=== PATIENT | male | born 1995 | race Caucasian/White ===

== ENCOUNTER → 2020-12-26 | Outpatient (CLI) | payer OTHER ==
--- NOTE | 2020-12-27 13:43 | REP ---
INDICATION: ELENITA HYPERTROPHIC BREAST TISSUE x YEARS. COMPARISON: None. TECHNIQUE: Bilateral breast sonography is performed. Mildly heterogeneous fibroglandular tissue is seen in the retroareolar region bilaterally consistent with bilateral and symmetric gynecomastia. No mass lesion is seen on either side. No suspicious acoustic shadowing or architectural distortion is observed. There are benign appearing bilateral axillary lymph nodes with fatty hilar architecture. No suspicious finding in either axilla. FINDINGS: BI-RADS category 2 benign findings. Evidence of bilateral gynecomastia. Sonographically symmetric. IMPRESSION: Clinical follow-up is advised. <Electronically signed by Talib Brizuela > 12/27/20 [id number]
== END ==
LOC: M WHC 12:25 → EDSEX 12:25
PROVIDERS: ATTEND Physician Assistant
DX: N62 Hypertrophy of breast (principal)